=== PATIENT | male | born 2000 | race Caucasian/White ===

== ENCOUNTER 2020-01-10 15:40 | Observation (INO) ==
[2020-01-10] MEDS ORDERED: *HR* LORazepam 1 MG TABLET PO ONE (17:26)
[2020-01-10] MEDS ORDERED: haloperidoL 5 MG TABLET PO PRN (17:46)
[2020-01-10] MEDS ORDERED: MOM Conc 10 ML UD.LIQ PO PRN (17:46)
[2020-01-10] MEDS ORDERED: Acetaminophen 325 MG TABLET PO PRN (17:46)
[2020-01-10] MEDS ORDERED: Mag Hydrox/Al Hydrox/Simeth 30 ML UDC PO PRN (17:46)
[2020-01-10] MEDS ORDERED: *HR* LORazepam 2 MG/ML VIAL IM PRN (17:46)
[2020-01-10] MEDS ORDERED: *HR* LORazepam 1 MG TABLET PO PRN (17:46)
[2020-01-10] MEDS ORDERED: Haloperidol Lactate 5 MG/ML VIAL IM PRN (17:46)
[2020-01-10] MEDS: Nicotine 21 MG PATCH.TD24 TD SCH (19:06)
[2020-01-10] MEDS: hydrOXYzine pamoate 25 MG CAPSULE PO PRN (20:14)
[2020-01-10] MEDS: traZODone 50 MG TABLET PO PRN (20:15)
[2020-01-11] MEDS: Nicotine 21 MG PATCH.TD24 TD SCH (09:49)
[2020-01-11] MEDS: traZODone 50 MG TABLET PO PRN (20:40)
[2020-01-11] MEDS: hydrOXYzine pamoate 25 MG CAPSULE PO PRN (20:40)
[2020-01-12] MEDS: Nicotine 21 MG PATCH.TD24 TD SCH (10:04)
[2020-01-12 10:19] VITALS: BP 131/80
== END 2020-01-12 11:05 | disposition home or self-care (01) ==
LOC: 1ANU 15:40 → EMEROOARM 15:40 → SUATTDRO 17:38 → 1ANU 18:45
PROVIDERS: ADMIT Psychiatry & Neurology Forensic Psychiatry; ATTEND Psychiatry & Neurology Psychiatry